=== PATIENT | female | born 1980 | race Caucasian/White ===

== ENCOUNTER 2016-12-22 12:14 | Emergency (ER) | payer OTHER | END 2016-12-22 15:30 | disposition home or self-care (01) | LOC: ER 12:14 | DX: R07.9 Chest pain, unspecified (principal); I95.9 Hypotension, unspecified; F32.9 Major depressive disorder, single episode, unspecified; K21.9 Gastro-esophageal reflux disease without esophagitis; Z79.899 Other long term (current) drug therapy; Z88.5 Allergy status to narcotic agent; Z88.0 Allergy status to penicillin; Z88.8 Allergy status to other drugs, medicaments and biological substances | CPT/HCPCS: 36415; 87502; 96361; 96374 ==

== ENCOUNTER 2017-02-17 16:17 | Emergency (ER) | payer OTHER | END 2017-02-17 19:08 | disposition home or self-care (01) | LOC: ER 16:17 | DX: R07.89 Other chest pain (principal); R11.0 Nausea; M54.2 Cervicalgia; R68.84 Jaw pain; F32.9 Major depressive disorder, single episode, unspecified; K21.9 Gastro-esophageal reflux disease without esophagitis; Z79.899 Other long term (current) drug therapy; Z88.0 Allergy status to penicillin; Z88.5 Allergy status to narcotic agent; Z88.8 Allergy status to other drugs, medicaments and biological substances | CPT/HCPCS: 36415; 96374 ==

== ENCOUNTER 2017-03-14 12:50 | Observation (INO) | payer OTHER ==
[~2017-03-14] VITALS: Ht 144.8 cm; Wt 83.5 kg
== END 2017-03-15 16:55 | disposition home or self-care (01) ==
LOC: ER 12:50 → MED 16:35
PROVIDERS: ADMIT Internal Medicine
DX: I20.9 Angina pectoris, unspecified (principal); F41.9 Anxiety disorder, unspecified; F32.9 Major depressive disorder, single episode, unspecified; K21.9 Gastro-esophageal reflux disease without esophagitis; K59.09 Other constipation; Z88.0 Allergy status to penicillin; Z88.5 Allergy status to narcotic agent; Z88.8 Allergy status to other drugs, medicaments and biological substances; Z79.02 Long term (current) use of antithrombotics/antiplatelets; Z79.82 Long term (current) use of aspirin; Z79.899 Other long term (current) drug therapy
CPT/HCPCS: 36415; 78452; 93017; 96372; 96374; 96376; G0378; J1650; J2785